=== PATIENT | female | born 1980 | race Two or more races ===

== ENCOUNTER 2018-06-08 08:41 | Emergency (ER) | payer OTHER ==
[~2018-06-08] VITALS: Ht 160 cm; Wt 72.6 kg
[2018-06-08] MEDS ORDERED: NEXIUM5 MG PO (08:47)
[2018-06-08] MEDS ORDERED: OSEL75CA PO (11:56)
[2018-06-08] MEDS ORDERED: TUSSI PRES-B L120 M1 PO (11:56)
== END 2018-06-08 12:29 | disposition home or self-care (01) ==
LOC: ER 08:41
DX: J11.1 Influenza due to unidentified influenza virus with other respiratory manifestations (principal)

== ENCOUNTER 2022-10-06 12:21 | Emergency (ER) | payer OTHER ==
[~2022-10-06] VITALS: Ht 160 cm; Wt 70.3 kg
[~2022-10-06 12:21] MED LIST: NEXIUM5 MG PO; ONDANSETRON ODT4 MG PO; OSEL75CA PO; PEPCID AC20 MG PO; TUSSI PRES-B L120 M1 PO
[2022-10-06] MEDS ORDERED: BUTALBIT-ACETA1 EACH PO (18:54)
== END 2022-10-06 19:07 | disposition home or self-care (01) ==
LOC: ER 12:21
DX: G43.809 Other migraine, not intractable, without status migrainosus (principal); R11.2 Nausea with vomiting, unspecified

== ENCOUNTER 2023-07-13 17:47 | Emergency (ER) | payer OTHER ==
[~2023-07-13] VITALS: Ht 160 cm; Wt 72.6 kg
[~2023-07-13 17:47] MED LIST changes: +BUTALBIT-ACETA1 EACH PO
[2023-07-13] MEDS ORDERED: FAMOtidine 10 MG/ML (4ML VIAL) IV PUSH STA (19:01)
[2023-07-13] MEDS ORDERED: CEFTRIAXONE SODIUM 1,000 MG VIAL IV STA (19:01)
== END 2023-07-13 19:28 | disposition home or self-care (01) ==
LOC: ER 17:47
DX: J37.0 Chronic laryngitis (principal)

== ENCOUNTER 2025-01-11 14:41 | Emergency (ER) | payer OTHER ==
[~2025-01-11] VITALS: Ht 162.6 cm; Wt 90.7 kg
[2025-01-11 15:42] VITALS: BP 116/78; O2SAT 97
[2025-01-11] MEDS ORDERED: DEXAMETHASONE SODIUM PHOSPHATE 4 MG/ML VIAL IM ONE (16:15)
[2025-01-11] MEDS ORDERED: METOCLOPRAMIDE HCL 10 MG in DEXTROSE 5 % IN WATER 50 ML IV ONE (16:15)
[2025-01-11] MEDS ORDERED: KETOROLAC TROMETHAMINE 30 MG VIAL IV ONE (16:15)
[2025-01-11] MEDS ORDERED: ONDANSETRON HCL 2 MG/ML VIAL IV ONE (16:15)
[2025-01-11] MEDS ORDERED: 0.9 % SODIUM CHLORIDE 1,000 ML IV SCH ×2 (16:15)
[2025-01-11 16:46] LABS: BASO % 0.6 % (0.1-1.2); EOS # 0.13 (0.04-0.54); EOS % 1.9 % (0.7-7.0); LYMPH # 0.88 (1.18-3.74); LYMPH % 13.2 % (19.3-53.1); MEAN PLATELET VOLUME 9.30 fl (9.4-12.4); MONO # 0.55 (0.24-0.82); MONO % 8.2 % (4.7-12.5); NEUT # 5.06 (1.56-6.13); NEUT % 75.7 % (34.0-71.1); RED CELL DISTRIBUTION WIDTH 16.7 % (11.6-14.4)
[2025-01-11 17:10] LABS: ALT/SGPT 28.0 U/L (12-78); AST/SGOT 15.0 U/L (15-37); BILIRUBIN TOTAL 0.49 mg/dL (0.3-1.2); BUN CREA RATIO 11.0 (7.0-25.0); CREATININE SERUM 0.91 mg/dL (0.55-1.02); GFR 67.79; GLOBULINA 3.6 G/DL (2.4-3.5); GLUCOSE FASTING 105.0 mg/dL (65-100); OSMOLALITY SERUM 281.0 MOSM/KG (275-295)
[2025-01-11 17:33] LABS: COVID-19 AG POSITIVE (NEGATIVE)
[2025-01-11] MEDS ORDERED: PAXLOVID 300-11 EAC1 PO (17:49)
[2025-01-11] MEDS ORDERED: TUSNEL LIQUID178 ML PO (17:49)
[2025-01-11] MEDS ORDERED: ONDANSETRON ODT8 MG PO (18:00)
== END 2025-01-11 18:15 | disposition home or self-care (01) ==
LOC: ER 14:41
PROVIDERS: General Practice
DX: U07.1 COVID-19 (principal)